=== PATIENT | male | born 1940 | race Caucasian/White ===

== ENCOUNTER 2017-07-19 06:19 | Day surgery (SDC) | payer MEDICARE ==
[2017-07-17 15:35] VITALS: BP 160/79
[2017-07-17 15:45] LABS: BASOPHILS % (AUTO) 0.6 % (0.0-5.0); EOSINOPHILS % (AUTO) 1.3 % (0.0-8.0); HEMATOCRIT 41.2 % (42-54); LYMPHOCYTES % (AUTO) 26.4 % (21.0-51.0); MEAN CORPUSCULAR HEMOGLOBIN 31.6 pg (27.0-33.0); MEAN CORPUSCULAR HGB CONC 33.8 g/dL (32.0-36.0); MEAN CORPUSCULAR VOLUME 93.5 fL (79-99); MONOCYTES % (AUTO) 7.6 % (3.0-13.0); NEUTROPHILS % (AUTO) 64.1 % (40.0-77.0); PLATELET COUNT (AUTO) 237 K/uL (130-400); RED BLOOD CELL COUNT(AUTO) 4.41 MIL/uL (4.50-6.20); RED CELL DISTRIBUTION WIDTH 14.8 % (11.0-15.5); WHITE BLOOD COUNT (AUTO) 7.8 K/uL (4.8-10.8)
[2017-07-17 15:54] LABS: CREATININE 1.1 mg/dL (0.5-1.5); POTASSIUM 4.6 mmol/L (3.5-5.1)
[2017-07-19] VITALS (14 sets, daily range): BP systolic 134–163; BP diastolic 57–91
[~2017-07-19] VITALS: Ht 167.6 cm; Wt 61.0 kg
[2017-07-19] MEDS: CEFTRIAXONE SODIUM 1 GM IVP SCH ×2 (06:00→08:20)
[~2017-07-19 06:19] MED LIST: ALPR1TAB7 PO; CHOL100040 PO; DORZ10DR14 OU; HYDR-3830 PO; TAMS0.4C32 PO; XALA2.5OS OU
[2017-07-19] MEDS ORDERED: WATER FOR INJECTION,STERILE 20 ML VIAL ONE (07:38)
[2017-07-19] MEDS ORDERED: LACTATED RINGERS 1000ML 1,000 ML IV ONE (07:38)
[2017-07-19] MEDS ORDERED: LIDOCAINE PF 2% 5ML ABBOJECT ONE (08:18)
[2017-07-19] MEDS ORDERED: SUCCINYLCHOLINE 200MG/10ML SYR ONE (08:18)
[2017-07-19] MEDS ORDERED: PROPOFOL 10 MG/ML 20ML VIAL IV ONE (08:18)
[2017-07-19] MEDS ORDERED: MIDAZOLAM HCL 1 MG/ML 2ML VIAL ONE (08:18)
[2017-07-19] MEDS ORDERED: DEXAMETHASONE SOD PHOSPHATE 10MG/ML 1ML VIAL ONE (08:18)
[2017-07-19] MEDS ORDERED: NEOSTIGMINE METHYLSULFATE 1MG/ML IV ONE (08:18)
[2017-07-19] MEDS ORDERED: GLYCOPYRROLATE 0.2 MG/ML 5 ML VIAL ONE (08:18)
[2017-07-19] MEDS ORDERED: ONDANSETRON HCL 4 MG/2 ML VIAL ONE (08:18)
[2017-07-19] MEDS ORDERED: ROCURONIUM BROMIDE 10MG/1ML 5ML VL ONE (08:18)
[2017-07-19] MEDS ORDERED: FENTANYL CITRATE PF 50 MCG/1 ML 5ML AMP IV ONE (08:18)
[2017-07-19] MEDS ORDERED: EPHEDRINE SULFATE 50 MG/ML AMPULE ONE (08:49)
[2017-07-19] MEDS ORDERED: OPIUM/BELLADONNA ALKALOIDS 1 EACH SUPP.RECT RC ONE (09:46)
[2017-07-19] MEDS ORDERED: PHENAZOPYRIDINE HCL 200 MG TABLET ONE (10:23)
== END 2017-07-19 11:10 | disposition home or self-care (01) ==
LOC: DAH 06:19
PROVIDERS: ATTEND Urology
DX: N40.1 Benign prostatic hyperplasia with lower urinary tract symptoms (principal); R39.14 Feeling of incomplete bladder emptying; I10 Essential (primary) hypertension; H40.9 Unspecified glaucoma; Z88.8 Allergy status to other drugs, medicaments and biological substances; Z88.1 Allergy status to other antibiotic agents; Z98.890 Other specified postprocedural states; Z98.52 Vasectomy status; D64.9 Anemia, unspecified; F41.9 Anxiety disorder, unspecified; Z85.46 Personal history of malignant neoplasm of prostate
CPT/HCPCS: 36415; 52648; 80048; 85025; 88305; 93005; A4354; A4358; A4510; A4600; J0330; J0696; J1100; J2001; J2250; J2405; J2704; J2710; J3010; J3490 ×3; J7030; J7120

== ENCOUNTER → 2020-06-13 | Outpatient (CLI) | payer OTHER | END | disposition home or self-care (01) | LOC: RAH 14:00 | PROVIDERS: ATTEND Internal Medicine Cardiovascular Disease | DX: Z13.6 Encounter for screening for cardiovascular disorders (principal) | CPT/HCPCS: 75571 ==

== ENCOUNTER → 2020-06-20 | Outpatient (CLI) | payer MEDICARE ==
[~2020-06-20] MED LIST changes: +REGADENOSON 0.4 MG/5 ML PF SYG IVP SCH
== END | disposition home or self-care (01) ==
LOC: SHCH 08:49
PROVIDERS: ATTEND Internal Medicine Cardiovascular Disease
DX: I25.10 Atherosclerotic heart disease of native coronary artery without angina pectoris (principal); I25.9 Chronic ischemic heart disease, unspecified; R51.9 Headache, unspecified; R06.00 Dyspnea, unspecified
CPT/HCPCS: 78452; 93017; 96374; A9500 ×2; J2785

== ENCOUNTER → 2021-04-17 | Outpatient (CLI) | payer MEDICARE ==
[~2021-04-17] MED LIST changes: -REGADENOSON 0.4 MG/5 ML PF SYG IVP SCH
== END | disposition home or self-care (01) ==
LOC: OIH 10:55
PROVIDERS: ATTEND Neurological Surgery
DX: M43.26 Fusion of spine, lumbar region (principal); M85.88 Other specified disorders of bone density and structure, other site
CPT/HCPCS: 72100

== ENCOUNTER 2021-05-23 05:53 | Day surgery (SDC) | payer MEDICARE ==
[2021-05-22 08:56] VITALS: BP 163/84
[~2021-05-23] VITALS: Ht 170.2 cm; Wt 59.0 kg
[~2021-05-23 05:53] MED LIST changes: -ALPR1TAB7 PO; +CELE200 PO; -CHOL100040 PO; +ESCI10TA PO; +GABA-529 PO; +HYDR-4064 PO; +LOSA100T58 PO; +MIRA50TA PO; +OMEP20CA12 PO; +ROSU10TA28 PO
[2021-05-23] MEDS ORDERED: ISOVUE-M 200 20 ML VIAL IT ONE (07:03)
== END 2021-05-23 12:35 | disposition home or self-care (01) ==
LOC: DAH 05:53 → EDSTATUS 12:00 → DAH 12:35
PROVIDERS: ATTEND Neurological Surgery
DX: M51.16 Intervertebral disc disorders with radiculopathy, lumbar region (principal); M48.062 Spinal stenosis, lumbar region with neurogenic claudication; M41.86 Other forms of scoliosis, lumbar region
CPT/HCPCS: 62304; 72132; Q9966

== ENCOUNTER 2021-07-31 11:00 | Observation (INO) | payer MEDICARE ==
[~2021-07-31] VITALS: Ht 170.2 cm; Wt 57.4 kg
[2021-07-31 10:05] VITALS: BP 167/93
[2021-07-31 10:17] LABS: BASOPHILS % (AUTO) 0.5 % (0.0-5.0); EOSINOPHILS % (AUTO) 2.9 % (0.0-8.0); HEMATOCRIT 38.9 % (42-54); MEAN CORPUSCULAR HEMOGLOBIN 30.6 pg (27.0-33.0); MEAN CORPUSCULAR HGB CONC 33.4 g/dL (32.0-36.0); MEAN CORPUSCULAR VOLUME 91.5 fL (79-99); MONOCYTES % (AUTO) 9.5 % (3.0-13.0); NEUTROPHILS % (AUTO) 58.6 % (40.0-77.0); PLATELET COUNT (AUTO) 232 K/uL (130-400); RED BLOOD CELL COUNT(AUTO) 4.25 MIL/uL (4.50-6.20); RED CELL DISTRIBUTION WIDTH 13.7 % (11.0-15.5); WHITE BLOOD COUNT (AUTO) 8.2 K/uL (4.8-10.8)
[2021-07-31 10:45] LABS: POTASSIUM 5.1 mmol/L (3.5-5.1)
[~2021-07-31 11:00] MED LIST changes: -HYDR-3830 PO; -LOSA100T58 PO
[2021-08-01] MEDS ORDERED: MINO100T PO (10:55)
[2021-08-01] MEDS ORDERED: NETA2.5D OP (10:55)
[2021-08-01] MEDS ORDERED: VALS160T29 PO (10:55)
[2021-08-02] VITALS (28 sets, daily range): BP systolic 129–163; BP diastolic 61–91
[2021-08-02] MEDS ORDERED: LACTATED RINGERS 1000ML 1,000 ML IV ONE ×2 (06:37→14:35)
[2021-08-02] MEDS ORDERED: CEFAZOLIN SODIUM 1 GM VIAL ONE ×4 (06:37→14:35)
[2021-08-02] MEDS: CEFAZOLIN SODIUM 2 GM VIAL IV SCH ×2 (06:45→07:45)
[2021-08-02] MEDS ORDERED: BUPIVACAINE/EPI/PF 0.25% 30ML VIAL IJ ONE (06:46)
[2021-08-02] MEDS ORDERED: MORPHINE PF 100MG/10ML AMP IV ONE (06:47)
[2021-08-02] MEDS ORDERED: THROMBIN-JMI 20000 UNIT KIT TP ONE (06:47)
[2021-08-02] MEDS ORDERED: LIDOCAINE PF 100MG/5ML (2%) SYRINGE 5ML ONE (07:03)
[2021-08-02] MEDS ORDERED: SUCCINYLCHOLINE CHLORIDE 20 MG/ML 10 ML VIAL ONE (07:03)
[2021-08-02] MEDS ORDERED: PROPOFOL 10 MG/ML 20ML VIAL IV ONE (07:04)
[2021-08-02] MEDS ORDERED: GLYCOPYRROLATE 1 MG/5 ML SYRINGE ONE (07:04)
[2021-08-02] MEDS ORDERED: MIDAZOLAM HCL 1 MG/ML 2ML VIAL ONE (07:04)
[2021-08-02] MEDS ORDERED: DEXAMETHASONE SOD PHOSPHATE 10MG/ML 1ML VIAL ONE ×2 (07:04→07:09)
[2021-08-02] MEDS ORDERED: ONDANSETRON 4MG INJ ONE (07:05)
[2021-08-02] MEDS ORDERED: ROCURONIUM 10MG/1ML SYR 10 MG/ML ML ONE (07:05)
[2021-08-02] MEDS ORDERED: NEOSTIGMINE 5MG/5ML SYR IV ONE (07:05)
[2021-08-02] MEDS ORDERED: FENTANYL CITRATE PF 50 MCG/1 ML 2ML VIAL ONE (07:05)
[2021-08-02] MEDS ORDERED: ARTIFICIAL TEARS 3.5 GM OINTMENT ONE (08:10)
[2021-08-02] MEDS ORDERED: MEPERIDINE-PF 25 MG/ML SYG ONE ×2 (11:40→12:26)
[2021-08-02] MEDS ORDERED: MORPHINE 2 MG SYG IVP PRN (18:30)
[2021-08-02] MEDS ORDERED: LACTATED RINGERS 1000ML 1,000 ML IV SCH (18:30)
[2021-08-02] MEDS ORDERED: CEFAZOLIN SODIUM 1 GM VIAL IV ONE (19:10)
[2021-08-02] MEDS: HYDROCODONE/ACETAMINOPHEN 7.5/325 MG TAB PO PRN (20:05)
[2021-08-02] MEDS: DORZOLAMIDE HCL/TIMOLOL MALEAT DROPS 10 ML BOTTLE OU SCH (20:05)
[2021-08-02] MEDS: Valsartan 160 MG PO SCH (20:11)
[2021-08-02] MEDS ORDERED: NETARSUDIL MESYLATE OP SCH (21:00)
[2021-08-02] MEDS ORDERED: CELECOXIB 200 MG CAP PO SCH (21:00)
[2021-08-02] MEDS ORDERED: LATANOPROST 2.5 ML DROPS OU SCH (21:00)
[2021-08-02] MEDS ORDERED: GABAPENTIN 100 MG CAPSULE PO SCH (21:00)
[2021-08-03 04:10] VITALS: BP 113/64
[2021-08-03] MEDS: HYDROCODONE/ACETAMINOPHEN 7.5/325 MG TAB PO PRN ×2 (06:41→11:23)
[2021-08-03 07:20] VITALS: BP 136/77
[2021-08-03] MEDS: DORZOLAMIDE HCL/TIMOLOL MALEAT DROPS 10 ML BOTTLE OU SCH (08:57)
[2021-08-03] MEDS ORDERED: MINOCYCLINE HCL 100 MG PO SCH (09:00)
[2021-08-03] MEDS ORDERED: PANTOPRAZOLE 40 MG TAB DR PO SCH (09:00)
[2021-08-03] MEDS ORDERED: Rosuvastatin Calcium 10 MG PO SCH (09:00)
[2021-08-03] MEDS ORDERED: TAMSULOSIN HCL 0.4 MG CAP.ER.24H PO SCH (09:00)
[2021-08-03] MEDS: Valsartan 160 MG PO SCH (09:00)
[2021-08-03 11:00] VITALS: BP 139/71
== END 2021-08-03 12:10 | disposition home or self-care (01) ==
LOC: EDSTATUS 11:00 → DAHIP 08-02 05:54 → 3AH 08-02 12:56
PROVIDERS: ADMIT Neurological Surgery; ATTEND Neurological Surgery
DX: M48.061 Spinal stenosis, lumbar region without neurogenic claudication (principal); K56.609 Unspecified intestinal obstruction, unspecified as to partial versus complete obstruction; C61 Malignant neoplasm of prostate; E78.5 Hyperlipidemia, unspecified; M41.9 Scoliosis, unspecified; M47.819 Spondylosis without myelopathy or radiculopathy, site unspecified; M67.40 Ganglion, unspecified site; Z20.822 Contact with and (suspected) exposure to COVID-19; Z79.899 Other long term (current) drug therapy
CPT/HCPCS: 36415; 63047; 63048; 72020; 80048; 85025; 87635; 96374; A4215; A4216; A4221; A4222; A4223 ×2; A4344; A4510; A4600; A4649 ×3; A4663; A6260; G0378 ×24; J0330; J0690 ×4; J1100 ×2; J2001; J2175 ×2; J2250; J2274; J2405; J2704; J2710; J3010; J3490 ×2; J7120 ×3